=== PATIENT | male | born 1980 | race Caucasian/White ===

== ENCOUNTER 2021-04-16 10:55 | Outpatient (CLI) | payer OTHER | END 2021-04-16 23:59 | disposition home or self-care (01) | LOC: LAB.N 10:55 | PROVIDERS: ATTEND Physician Assistant | DX: U07.1 COVID-19 (principal) ==

== ENCOUNTER 2023-07-19 15:47 | Outpatient (CLI) | payer OTHER ==
--- NOTE | 2023-07-20 09:46 | MRI Report ---
PROCEDURE: Cervical Spine WO INDICATIONS: CERVICALGIA TECHNIQUE: Noncontrast sagittal T1 spin echo and T2 fast spin echo, sagittal STIR, foraminal oblique sagittal T2 fast spin echo, and axial gradient echo or T2 fast spin echo through the cervical spine. COMPARISON: None. FINDINGS: Image quality: Excellent. Alignment and Curvature: There is normal bony alignment. Straightening of the normal cervical lordos is. Bone Marrow: Marrow demonstrates normal overall signal. Spinal Cord: Visualized spinal cord has normal size and signal. No cerebellar tonsillar herniation. Paraspinous Soft Tissues: 1.1 cm round, homogeneously T2 hyperintense nodule is posterior to the left inferior pole thyroid gland. T2 hyperintense mucous the base of the right maxillary sinus and partia lly imaged T2 hyperintensity of the left maxillary sinus base.. Prevertebral soft tissues are normal in thickness. C2-C3: Normal in appearance. C3-C4: Mild left-sided facet arthropathy and slight uncovertebral joint hypertrophy causes mild to moderate left foraminal narrowing. C4-C5: Mild disc height loss and mild left uncovertebral joint hypertrophy. Mild left foraminal narr owing. C5-C6: Mild disc height loss and desiccation. Mild circumferential disc osteophyte. There is slight flattening of the anterior CSF space. Left uncovertebral joint hypertrophy and mild facet arthropathy cause mild left foraminal narrowing. C6-C7: Mild disc desiccation. Mild broad-based posterior and left foraminal disc bulge causing mild left foraminal narrowing. C7-T1: Normal in appearance. IMPRESSION: Mild to moderate multilevel left-sided foraminal narrowing due to mild disc and facet joint degenerat ion. There is no significant central canal stenosis. 1.1 cm T2 hyperintense nodule posterior to the left thyroid. Differential considerations include para thyroid adenoma or exophytic thyroid cyst. Correlate clinically and consider ultrasound or nuclear me dicine sestamibi scan if needed. Reviewed by: Alba Boykin MD on 07/20/2023 9:45 AM PDT Approved by: Alba Boykin MD on 07/20/2023 9:45 AM PDT Station ID: [id number]
== END 2023-07-19 15:48 | disposition home or self-care (01) ==
LOC: DI 15:47
DX: M47.812 Spondylosis without myelopathy or radiculopathy, cervical region (principal); M50.321 Other cervical disc degeneration at C4-C5 level; M48.02 Spinal stenosis, cervical region; R22.1 Localized swelling, mass and lump, neck

== ENCOUNTER 2023-08-24 10:47 | Outpatient (CLI) | payer OTHER ==
--- NOTE | 2023-08-24 23:01 | Ultrasound Report ---
PROCEDURE: Soft Tissue Head or Neck INDICATIONS: THYROID NODULE TECHNIQUE: Real-time scanning was performed of the thyroid gland, with image documentation. COMPARISON: None FINDINGS: Right: Thyroid lobe measures 6.5 x 1.8 x 1.9 cm. Left: Thyroid lobe measures 6.5 x 1.8 x 2.0 cm Isthmus: 0.4 cm thick. Echotexture: Heterogeneous. Nodule number: One Location: Left inferior Size: 1.1 x 1.4 x 1.2 cm. Composition: Cyst. Echogenicity: Anechoic. Shape: wider than tall (0 points). Margins: Smooth (0 points). Echogenic foci: None (0 points). Total points: 0 ACR TI-RADS category: 1 IMPRESSION: Category 1 lesion most suggestive of cyst. No additional follow-up is recommended. ACR TI-RADS definitions and recommendations: TI-RADS 1 (benign): 0 points. FNA not needed. TI-RADS 2 (not suspicious): 2 points. FNA not needed. TI-RADS 3 (mildly suspicious): 3 points. "FNA if 2.5 cm or larger, follow up if 1.5 cm or larger (at 1, 3, and 5 years). TI-RADS 4 (moderately suspicious): 4-6 points. "FNA if 1.5 cm or larger, follow up if 1 cm or larger (at 1, 2, 3, and 5 years). TI-RADS 5 (highly suspicious): 7 points or more. "FNA if 1 cm or larger, follow up if 0.5 cm or larger (every year for 5 years). Reviewed by: Shweta Wetzel MD on 08/24/2023 11:00 PM PDT Approved by: Shweta Wetzel MD on 08/24/2023 11:00 PM PDT Station ID: [id number]
== END 2023-08-24 10:48 | disposition home or self-care (01) ==
LOC: DI 10:47
DX: E04.1 Nontoxic single thyroid nodule (principal)